=== PATIENT | male | born 1945 | race Caucasian/White ===

== ENCOUNTER 2016-04-29 08:30 | Emergency (ER) ==
[2016-04-29] MEDS ORDERED: ASPIRIN PO STA (08:31)
[2016-04-29 08:54] LABS: BASO% 0.2 % (0.0-0.8); EOS# 0.12 X1000 (0.0-0.7); HEMOGLOBIN 14.9 g/dL (14.0-18.0); IMM GRAN# 0.03 X1000 (0.0-0.04); IMM GRAN% 0.3 % (0.0-0.5); LYMPH# 0.76 X1000 (1.2-3.4); LYMPH% 6.6 % (20.5-51.1); MANUAL DIFF NEEDED? NO; MCH 28.9 PG (27-31); MCHC 33.1 g/dL (33-37); MCV 87.4 FL (81-99); MONO% 5.2 % (1.7-9.3); MPV 10.6 FL (7.4-10.4); NEUT% 86.7 % (42.2-75.2); PLT 298 X1000 (130-400); RBC 5.15 XMIL (4.7-6.1)
--- NOTE | 2016-04-29 08:55 | EKG Report ---
Test Performed on : 04/29/2016 08:36:29 AM Test Reason : CP^ ~~ ~~^ &~& & & \ \~ ~^ && ~
[2016-04-29] MEDS ORDERED: LOPRESSOR IV ONE ×2 (09:00→09:10)
[2016-04-29] MEDS ORDERED: LOPRESSOR ONE (09:00)
[2016-04-29 09:02] LABS: AGAP 11; ALBUMIN 4.4 g/dL (3.5-5.0); ALKALINE PHOSPHATASE 94 U/L (32-122); BUN 13 mg/dL (8-22); CALCIUM 9.5 mg/dL (8.8-10.2); CHLORIDE 95 mmol/L (98-107); CK PROFILE 71 U/L (24-204); COSMO 272; GOT 13 U/L (10-34); GPT 7 U/L (10-44); INR 0.93 (0.86-1.15); POTASSIUM 3.6 mmol/L (3.5-5.1); PROTIME 12.8 Seconds (12.1-15.5); SODIUM 135 mmol/L (136-145); TCO2 29 mmol/L (25-35); TOTAL PROTEIN 8.1 g/dL (6.3-8.3)
[2016-04-29 09:03] LABS: PTT PL 36.5 Seconds (22.6-43.9)
[2016-04-29] MEDS ORDERED: NORCO-5 ONE (09:08)
[2016-04-29] MEDS ORDERED: NORCO-5 PO ONE (09:12)
--- NOTE | 2016-04-29 09:42 | PROVIDER DOCUMENTATION ---
HPI-General Adult <Christiana Bishop - Last Filed: 04/29/16 11:06> - General Source: patient - History of Present Illness -Gen Adult Nature of Presenting Problems: Patient is a 70 y/o M that presents to the ER with sudden onset of middle back pain with shortness of breath and diaphoresis. Denies chest pain, cough, or fever/chills, history of AAA. Location of Pain/Injury: reports: back Pain Radiation: reports: no radiation Quality of Pain: reports: sharp Severity: reports: moderate Onset/Duration: reports: abrupt, just prior to arrival Timing: reports: still present, constant Context/Activities at Onset: reports: none Modifying Factors: improves with: nothing Associated Symptoms: reports: back/neck pain, diaphoresis, nausea, shortness of breath. denies: chest pain, fever/chills, genitourinary problems, muscle aches , sinus congestion/drainage, vomiting Similar Symptoms Previously?: No Recently seen or treated by another doctor?: No <Elroy Pfeiffer - Last Filed: 04/29/16 12:15> <Tigre Lima - Last Filed: 04/29/16 12:27> - General Chief Complaint: Shortness of Breath Stated Complaint: SOB/COPD/CHEST PAIN Time Seen by Provider: 04/29/16 08:42 Allergies/Adverse Reactions: Patient Allergies Allergy/AdvReac Type Severity Reaction Status Date / Time No Known Allergies Allergy Verified 12/10/15 01:27 Home Medications: Aspirin 325 mg PO DAILY 04/29/16 Clonidine [Catapres] 0.1 mg PO TID 04/29/16 Clopidogrel Bisulfate [Clopidogrel] 75 mg PO DAILY 04/29/16 Diltiazem HCl [Taztia Xt] 240 mg PO DAILY 04/29/16 Escitalopram [Lexapro] 20 mg PO DAILY 04/29/16 Prednisone 5 mg PO DAILY 04/29/16 Valsartan/Hydrochlorothiazide [Valsartan-Hctz 160-25 mg Tab] 1 each PO BID 04/29 Review of Systems - Adult - REVIEW OF SYSTEMS - ADULT Constitutional: denies: chills, fever Eyes: denies: decreased vision, blurred vision, double vision Ears, Nose, Mouth & Throat: denies: ear pain, sinus problem, throat pain, throat swelling Cardiovascular: denies: chest pain, palpitations, syncope Respiratory: reports: shortness of breath. denies: cough, wheezing Gastrointestinal: reports: nausea. denies: abdominal pain, diarrhea, vomiting Genitourinary: reports: no symptoms reported Musculoskeletal: reports: back pain. denies: joint pain, neck pain Integumentary: reports: no symptoms reported Neurological: reports: no symptoms reported Psychiatric: reports: no symptoms reported Endocrine: reports: no symptoms reported Hematologic/Lymphatic: reports: no symptoms reported Allergic/Immunologic: reports: no symptoms reported All Other Systems: Reviewed and Negative <Elroy Pfeiffer - Last Filed: 04/29/16 12:15> Past History - Adult - PAST MEDICAL HISTORY-ADULT Review of Records: reports: Old Records Reviewed, Nursing Assessment Review, Medications Reviewed Cardiovascular: reports: CAD, HTN, other (aaa) Respiratory: reports: COPD, lung disease (lung ca), other Gastrointestinal: reports: GERD, polyps Musculoskeletal: reports: chronic pain Psychiatric: reports: anxiety - PRIOR SURGERIES/PROCEDURES Surgical/Procedure History: reports: colonoscopy, cardiac stent, hernia repair, other - IMMUNIZATION STATUS Childhood Immunizations: See Nurse Assessment Flu Vaccine: See Nurse Assessment - FAMILY HISTORY Family History: reviewed, not pertinent - SOCIAL HISTORY Smoking: cigarettes, less than 1 pack/day Living Situation: family <Elroy Pfeiffer - Last Filed: 04/29/16 12:15> Physical Exam-General - PHYSICAL EXAM-ADULT Initial Vital Signs Reviewed: Yes - CONSTITUTIONAL General Appearance: alert, mild distress, moderate distress, anxious - EYES Eyes: PERRL/EOMI, pink conjunctivae - HEAD, EARS, NOSE, MOUTH & THROAT HENMT: normocephalic/atraumatic, moist mucous membranes, normal ENT inspection - NECK Neck: full range of motion, normal inspection - RESPIRATORY Respiratory: lungs clear, normal breath sounds, no respiratory distress, no accessory muscle use - CARDIOVASCULAR Cardiovascular: regular rate, rhythm, no edema, no murmur - GASTROINTESTINAL (ABDOMEN) Abdominal Exam: normal bowel sounds, non tender, soft, no organomegaly, no pulsatile mass. negative: hepatomegaly, spleenomegaly - MUSCULOSKELETAL Back Exam: no CVA tenderness, no vertebral tenderness Extremity: normal range of motion, normal inspection, no pedal edema, normal capillary refill, pelvis stable - SKIN Integumentary: normal color, warm/dry - NEUROLOGIC Neurologic: grossly normal, no motor/sensory deficits - PSYCHIATRIC Psych/Mental Status: oriented x 3, anxious <Elroy Pfeiffer - Last Filed: 04/29/16 12:15> Progress - EKG 1 Time of EKG reading by physician:: 08:36 EKG Read and Signed by:: Tigre Lima EKG Interpretation (*Must complete 3 of following elements*): Abnormal Rate: 92 Rhythm: normal sinus rhythm [place]: normal QRS: normal [place] Interval: normal ST Wave: non-specific ST changes 2 Time of EKG reading by physician:: 11:00 EKG Read and Signed by:: Tigre Lima EKG Interpretation (*Must complete 3 of following elements*): Abnormal Rate: 65 Rhythm: normal sinus rhythm [place]: normal QRS: normal [place] Interval: normal ST Wave: non-specific ST changes <Christiana Bishop - Last Filed: 04/29/16 11:06> - PLAN OF CARE/RESULTS Progress/Plan/Lab Results: plan of care-labs, ct abd/pelv r/o aaa, meds CTA abd/pelv report as follows: 1) interval development of new atherosclerotic plaque or mural thrombus involving the descending aorta as described with focal ulceration and slight increase in diameter as compared to previous study 2.) stable stent graft-repaired AAA with no evidence of endoleak 3.) chest and abdomen are essentially stable compared to previous study. - CT/MRI 1 CT Study: Abdomen, Angiogram, Pelvis Impression: Abnormal CT Results: see progress note for complete report - CONSULTS/PCP/HOSPITALIST Notification #2 Consult: vascular surgeon Time Discussed: 11:55 Reason/Comments: ok to d/c home f/u in office Consult Disposition: F/U in office, other <Elroy Pfeiffer - Last Filed: 04/29/16 12:15> - PLAN OF CARE/RESULTS Progress/Plan/Lab Results: Vital Signs - 24 hr 04/29/16 04/29/16 04/29/16 08:34 09:00 09:15 Temperature 97.8 F Pulse Rate 98 H 65 69 Respiratory 24 23 20 Rate Blood Pressure 176/101 181/97 177/102 O2 Sat by Pulse 98 96 96 Oximetry 04/29/16 11:03 Temperature Pulse Rate 65 Respiratory 22 Rate Blood Pressure 195/105 O2 Sat by Pulse 99 Oximetry Orders Category Date Time Status Cardiac Monitoring DIRECTED Care 04/29/16 08:31 Active Oxygen Therapy- ED Nursing DIRECTED Care 04/29/16 08:31 Active Saline Loc NOW Care 04/29/16 08:31 Active CTA THORAX AND ABDOMEN [CT] Stat Exams 04/29/16 09:19 Draft CBC WITH ELECTRONIC DIFF [HEME] Stat Lab 04/29/16 08:40 Completed CK PROFILE [SP CHEM] Stat Lab 04/29/16 08:40 Completed CK PROFILE [SP CHEM] Stat Lab 04/29/16 11:03 Completed COMPREHENSIVE METABOLIC PANEL [CHEM] Stat Lab 04/29/16 08:40 Completed MAGNESIUM [CHEM] Stat Lab 04/29/16 08:40 Completed PRO B-NATRIURETIC PEPTIDE Stat Lab 04/29/16 08:40 Completed [address]IME WITH INR PL [COAG] Stat Lab 04/29/16 08:[address] [COAG] Stat Lab 04/29/16 08:40 Completed TROPONIN T Stat Lab 04/29/16 08:40 Completed TROPONIN T Stat Lab 04/29/16 11:03 Completed Amlodipine [Norvasc] Med 04/29/16 12:11 Discontinued 10 mg PO NOW ONE Aspirin Med 04/29/16 08:31 Discontinued 325 mg PO STAT STA Hydrocodone/APAP 5 mg/325 mg [[place]-5] Med 04/29/16 09:08 Discontinued 1 each .ROUTE .STK-MED ONE Hydrocodone/APAP 5 mg/325 mg [[place]-5] Med 04/29/16 09:12 Discontinued 1 each PO NOW ONE Metoprolol [Lopressor] Med 04/29/16 09:00 Discontinued 15 mg .ROUTE .STK-MED ONE Metoprolol [Lopressor] Med 04/29/16 09:00 Discontinued 5 mg IV NOW ONE Metoprolol [Lopressor] Med 04/29/16 09:10 Discontinued 5 mg IV NOW ONE Nitroglycerin Med 04/29/16 11:06 Discontinued 1 inch TOP NOW ONE EKG [EKG] Stat Ther 04/29/16 08:31 Draft EKG [EKG] Stat Ther 04/29/16 10:51 Draft Laboratory Tests 04/29/16 04/29/16 04/29/16 08:40 08:40 08:40 WBC RBC Hgb Hct MCV MCH MCHC RDW Std Deviation Plt Count MPV Immature Gran % (Auto) Neut % (Auto) Lymph % (Auto) [place] % (Auto) Eos % (Auto) Baso % (Auto) Immature Gran # (Auto) Neut # (Auto) Lymph # (Auto) [place] # (Auto) Eos # (Auto) Baso # (Auto) PT INR APTT (Factor Assay) Sodium 135 L Potassium 3.6 Chloride 95 L Carbon Dioxide 29 Anion Gap 11 BUN 13 Creatinine 0.9 Estimated GFR/1.73 m2 > 60 BUN/Creatinine Ratio 14 Glucose 138 H Calculated Osmolality 272 Calcium 9.5 Magnesium 2.0 Total Bilirubin 0.30 AST 13 ALT 7 L Alkaline Phosphatase 94 Creatine Kinase 71 Troponin T < 0.010 Vmf-V-Ptiucgzptln Pept 1483 H Total Protein 8.1 Albumin 4.4 Globulin 4.0 Albumin/Globulin Ratio 1.0 04/29/16 04/29/16 04/29/16 08:40 08:40 11:03 WBC 11.45 H RBC 5.15 Hgb 14.9 Hct 45.0 MCV 87.4 MCH 28.9 MCHC 33.1 RDW Std Deviation 15.9 H Plt Count 298 MPV 10.6 H Immature Gran % (Auto) 0.3 Neut % (Auto) 86.7 H Lymph % (Auto) 6.6 L [place] % (Auto) 5.2 Eos % (Auto) 1.0 Baso % (Auto) 0.2 Immature Gran # (Auto) 0.03 Neut # (Auto) 9.92 H Lymph # (Auto) 0.76 L [place] # (Auto) 0.60 H Eos # (Auto) 0.12 Baso # (Auto) 0.02 PT 12.8 INR 0.93 APTT (Factor Assay) 36.5 Sodium Potassium Chloride Carbon Dioxide Anion Gap BUN Creatinine Estimated GFR/1.73 m2 BUN/Creatinine Ratio Glucose Calculated Osmolality Calcium Magnesium Total Bilirubin AST ALT Alkaline Phosphatase Creatine Kinase 69 Troponin T Urp-S-Dugcxszaior Pept Total Protein Albumin Globulin Albumin/Globulin Ratio 04/29/16 11:03 WBC RBC Hgb Hct MCV MCH MCHC RDW Std Deviation Plt Count MPV Immature Gran % (Auto) Neut % (Auto) Lymph % (Auto) [place] % (Auto) Eos % (Auto) Baso % (Auto) Immature Gran # (Auto) Neut # (Auto) Lymph # (Auto) [place] # (Auto) Eos # (Auto) Baso # (Auto) PT INR APTT (Factor Assay) Sodium Potassium Chloride Carbon Dioxide Anion Gap BUN Creatinine Estimated GFR/1.73 m2 BUN/Creatinine Ratio Glucose Calculated Osmolality Calcium Magnesium Total Bilirubin AST ALT Alkaline Phosphatase Creatine Kinase Troponin T < 0.010 Dgy-L-Avexvdoyoam Pept Total Protein Albumin Globulin Albumin/Globulin Ratio - CONSULTS/PCP/HOSPITALIST Notification #1 *Consult/PCP/Hospitalist*: [facility]( otolaryngology surgeon for vascular) Time Discussed: 11:20 Reason/Comments: history of aaa, abnormal ct Consult Disposition: other (will review ct and call back) #2 Consult: at Time Discussed: 12:25 Reason/Comments: transfer to to ICU Consult Disposition: other <Tigre Lima - Last Filed: 04/29/16 12:27> Departure <Christiana Bishop - Last Filed: 04/29/16 11:06> <Elroy Pfeiffer - Last Filed: 04/29/16 12:15> - Departure Time of Disposition Order: 12:26 Certified Medical Emergency: Emergent - Critical Care Note Total Time (mins): 45 Critical Care Statement: This patient required my direct personal management to treat or rule out processes, the absence of which, could potentiallly result in sudden, clinically significant life or limb threatening deterioration. <Tigre Lima - Last Filed: 04/29/16 12:27> - Departure DIAGNOSIS: SOB (shortness of breath), Abdominal aortic aneurysm (AAA) Disposition: [facility] 02 Condition: Stable Attestation - Scribe Verification/Attestation Scribe:: Christiana Bishop Acting as Scribe for:: Tigre Lima Scribmanda documention review:: This chart was documented by a scribe and accurately reflects the service the provider performed and the decisions made by the provider. <Christiana Bishop - Last Filed: 04/29/16 11:06> - Scribe Verification/Attestation Scribe:: Elroy Pfeiffer Acting as Scribe for:: Tigre Lima Scribe documention review:: This chart was documented by a scribe and accurately reflects the service the provider performed and the decisions made by the provider. <Elroy Pfeiffer - Last Filed: 04/29/16 12:15> Physician Attestation - Physician Attestation I, the provider, attest to the following statement:: Tigre Lima Physician documentation Attestation:: This documentation recorded by the scribe accurately reflects the service I personally performed and the decisions made by me. <Elroy Pfeiffer - Last Filed: 04/29/16 12:15>
--- NOTE | 2016-04-29 11:01 | Diag Imaging Result Document ---
PROCEDURE NAME: CTA THORAX AND ABDOMEN - 04/29/2016 CTA CHEST AND ABDOMEN: COMPARISON: Conventional CT of the chest, abdomen and pelvis with IV contrast dated 12/10/2015. FINDINGS: CHEST: There is no evidence of pulmonary embolism. There is a new soft atherosclerotic plaque or mural thrombus involving the ventral aspect of the descending thoracic aorta that exhibits focal ulceration. The overall diameter of the descending aorta is slightly larger than the previous study, measuring up to 3.8 cm in diameter at the level of the new atherosclerotic plaque (3.5 cm previously). The enhancing portion of the lumen of the aorta is slightly narrowed at this level as well. No discrete dissection is appreciated. There is cardiomegaly. There is atherosclerotic calcification involving the coronary arteries. [place] mediastinal and hilar lymph nodes are nonspecific and are stable. There are few small calcifications within mediastinal lymph nodes and right hilar lymph nodes indicating prior granulomatous disease. There is a loculated pleural fluid collection on the left that is stable to marginally larger than the previous study. There is volume loss on the left related to prior partial pneumonectomy. There is stable atelectasis and vague ground-glass opacity throughout the left lung that appears to be stable. Bilateral patchy parenchymal scarring is approximately stable. There are emphysematous changes at the right upper lung zone. There is stable chronic atelectasis versus platelike scarring at the right lung base. ABDOMEN: There is a known abdominal aortic aneurysm with stent graft repair. The aneurysm is approximately stable in size, measuring up to. 5.8 x 5.3 cm axially. There is no evidence of stent graft endoleak. The stent graft appears to be patent. There is stable atherosclerotic narrowing at the origins of the renal arteries bilaterally. There is a left adrenal nodule that is approximately stable as compared to the previous study. There is stable extensive diverticulosis coli but no evidence of diverticulitis. The remainder of the visualized structures of the abdomen and the visualized abdominal segments of the GI tract are essentially unremarkable. IMPRESSION: 1. Interval development of a new atherosclerotic plaque or mural thrombus involving the descending aorta as described with focal ulceration and slight increase in diameter as compared to the previous study. 2. Stable stent graft-repaired abdominal aortic aneurysm with no evidence of endoleak. 3. The chest and abdomen are essentially stable as compared to the previous study, otherwise.
[2016-04-29] MEDS ORDERED: NITROGLYCERIN TOP ONE (11:06)
--- NOTE | 2016-04-29 11:37 | EKG Report ---
Test Performed on : 04/29/2016 11:00:12 AM Test Reason : cp Blood Pressure : / mmHG Vent. Rate : 065 BPM Atrial Rate : 065 BPM P-R Int : 154 ms QRS Dur : 092 ms QT Int : 408 ms P-R-T Axes : -06 -24 098 degrees QTc Int : 424 ms Normal sinus rhythm. T wave abnormality, consider lateral ischemia Abnormal ECG When compared with ECG of 29-APR-2016 08:36, (Unconfirmed) Nonspecific T wave abnormality now evident in Inferior leads QT has shortened Unconfirmed Result
[2016-04-29] MEDS ORDERED: NORVASC PO ONE (12:11)
[2016-04-29 13:14] VITALS: BP 191/80
== END 2016-04-29 13:25 | disposition short-term general hospital (02) ==
LOC: P.ED 08:30
DX: I71.4 Abdominal aortic aneurysm, without rupture (principal); R06.02 Shortness of breath; R94.31 Abnormal electrocardiogram [ECG] [EKG]; M54.6 Pain in thoracic spine; R61 Generalized hyperhidrosis; R11.0 Nausea; R07.9 Chest pain, unspecified; I25.10 Atherosclerotic heart disease of native coronary artery without angina pectoris; Z79.899 Other long term (current) drug therapy; I10 Essential (primary) hypertension; J44.9 Chronic obstructive pulmonary disease, unspecified; G89.29 Other chronic pain; F41.9 Anxiety disorder, unspecified; F17.210 Nicotine dependence, cigarettes, uncomplicated; Z79.82 Long term (current) use of aspirin; Z79.52 Long term (current) use of systemic steroids; Z85.118 Personal history of other malignant neoplasm of bronchus and lung; Z95.5 Presence of coronary angioplasty implant and graft
CPT/HCPCS: 36415; 71275; 74175; 80053; 82550; 83735; 83880; 84484; 85025; 85610; 85730; 93005; 96374; Q9967